=== PATIENT | male | born 1945 | race Caucasian/White ===

== ENCOUNTER 2021-04-24 19:21 | Inpatient (IN) | payer OTHER ==
[2021-04-24] MEDS ORDERED: Dextrose 5% in Water 1,000 ML IV PRN (20:21)
[2021-04-24] MEDS ORDERED: Morphine 2 MG/ML VIAL SLOW IVP PRN (20:21)
[2021-04-24] MEDS ORDERED: Dextrose 50% Abboject 50 ML SYRINGE SLOW IVP PRN (20:21)
[2021-04-24] MEDS ORDERED: Ondansetron PF 4 MG/2 ML Vial IVP PRN (20:21)
[2021-04-24] MEDS ORDERED: Cyclobenzaprine 10 MG TAB PO PRN (20:42)
[2021-04-24] MEDS ORDERED: traMADol HCl 50 MG TAB PO PRN (20:42)
[2021-04-24] MEDS ORDERED: Ibuprofen 200 MG TAB PO PRN (20:42)
[2021-04-24 21:50] LABS: Magnesium 1.9 mg/dL (1.6-2.6); Phosphorus 2.8 mg/dL (2.3-4.7)
[2021-04-24] MEDS ORDERED: Sodium Chloride 0.9% 1,000 ML IV SCH (22:30)
[2021-04-24 22:31] LABS: CKMB 20.8 ng/mL (0-6.6)
[2021-04-24] MEDS ORDERED: Gabapentin 100 MG CAP PO SCH (22:45)
[2021-04-24 22:53] VITALS: BMI 32.1
[2021-04-24] MEDS ORDERED: Potassium Chloride 40 MEQ in Sodium Chloride 0.9% 250 ML 250 ML IVPB SCH (23:00)
[2021-04-25] MEDS ORDERED: Famotidine/PF 20 mg/2ml Vial SLOW IVP SCH (00:30)
[2021-04-25] MEDS: Senokot S 8.6-50 MG TAB PO SCH ×3 (02:45→21:37)
[2021-04-25] MEDS: Acetaminophen 500 MG TAB PO SCH ×4 (02:49→18:00)
[2021-04-25 05:09] LABS: Hemoglobin 12.5 g/dL (14.0-18.0); Mean Corpuscular HGB CONC 36.1 g/dL (32.0-36.0); Mean Corpuscular Hemoglobin 35.9 pg (27.0-31.0); Mean Corpuscular Volume 99.5 fL (78.0-98.0); Mean Platelet Volume 7.2 fL (7.4-10.4); Platelet Count 152 thou/uL (130-400); RBC Distribution Width 11.7 % (11.5-14.5); Red Blood Cell (RBC) Count 3.49 mill/uL (4.70-6.10); White Blood Cell (WBC) Count 9.8 thou/uL (4.8-10.8)
[2021-04-25 05:14] LABS: Anion Gap 14 mmol/L (10-20); BUN (Urea Nitrogen) 26 mg/dL (8.4-25.7); Calc. Creatinine Clearance 118 mL/min (70-130); Calcium 8.8 mg/dL (7.8-10.44); Carbon Dioxide 23 mmol/L (23-31); Chloride 105 mmol/L (98-107); Glucose 137 mg/dL (83-110); Potassium 3.6 mmol/L (3.5-5.1); Sodium 138 mmol/L (136-145)
[2021-04-25 05:30] LABS: Phosphorus 3.6 mg/dL (2.3-4.7)
[2021-04-25 05:52] LABS: Band 4 % (5-11); Lymphocytes 11 % (21-51); MDiff Complete? YES; Monocytes 11 % (0-10); Neutrophil 74 % (42-75); Platelet Satellitism MODERATE; Vacuoles SLIGHT
[2021-04-25] MEDS: traMADol HCl 50 MG TAB PO SCH ×3 (05:53→18:00)
[2021-04-25 09:25] LABS: CKMB 14.5 ng/mL (0-6.6)
[2021-04-25] MEDS ORDERED: Iopamidol 370 76% 50 ML VIAL FS ONE (09:47)
[2021-04-25] MEDS: Famotidine/PF 20 mg/2ml Vial SLOW IVP SCH ×2 (11:23→21:36)
[2021-04-25] MEDS: Polyethylene Glycol 3350 17 GM Packet PO SCH (11:34)
[2021-04-25] MEDS: Gabapentin 100 MG CAP PO SCH ×3 (11:35→21:38)
[2021-04-25] MEDS ORDERED: Lidocaine 1% (PF) 30 ML VIAL ONE (14:53)
[2021-04-25] MEDS ORDERED: Gentamicin 80 MG/2 ML VIAL ONE (14:55)
[2021-04-25] MEDS ORDERED: CEFAZOLIN 1 GM VIAL ONE (14:55)
[2021-04-25] MEDS ORDERED: Midazolam HCl 2 mg/2 ml Vial ONE (15:07)
[2021-04-25] MEDS ORDERED: Fentanyl 100 MCG/2 ML VIAL ONE (15:14)
[2021-04-25] MEDS ORDERED: HYDROcodone/Acetaminophen 5/325 mg Tablet PO PRN (15:56)
[2021-04-26] MEDS: Acetaminophen 500 MG TAB PO SCH ×5 (00:02→23:56)
[2021-04-26] MEDS: traMADol HCl 50 MG TAB PO SCH ×5 (00:02→23:56)
[2021-04-26] MEDS: Senokot S 8.6-50 MG TAB PO SCH ×2 (08:50→21:59)
[2021-04-26] MEDS: Gabapentin 100 MG CAP PO SCH ×3 (08:50→22:00)
[2021-04-26] MEDS: Famotidine/PF 20 mg/2ml Vial SLOW IVP SCH ×2 (08:51→22:00)
[2021-04-26] MEDS: Polyethylene Glycol 3350 17 GM Packet PO SCH (08:51)
[2021-04-26] MEDS ORDERED: Aspirin 81 mg Enteric Coated Tablet PO SCH (09:15)
[2021-04-27] MEDS: traMADol HCl 50 MG TAB PO SCH ×2 (05:45→11:29)
[2021-04-27] MEDS: Acetaminophen 500 MG TAB PO SCH ×2 (05:45→11:29)
[2021-04-27] MEDS ORDERED: Aspirin 81 mg Enteric Coated Tablet PO SCH (09:00)
[2021-04-27] MEDS: Gabapentin 100 MG CAP PO SCH (09:01)
[2021-04-27] MEDS: Senokot S 8.6-50 MG TAB PO SCH (09:01)
[2021-04-27] MEDS: Polyethylene Glycol 3350 17 GM Packet PO SCH (09:01)
[2021-04-27 11:28] VITALS: TEMP 97.7
[2021-04-27 12:01] VITALS: BP 178/81
== END 2021-04-27 14:35 | disposition home or self-care (01) | DRG 243 ==
LOC: 2NO 19:21
PROVIDERS: ADMIT Surgery; ATTEND Surgery
PROC: 0JH606Z Insertion of Pacemaker, Dual Chamber into Chest Subcutaneous Tissue and Fascia, Open Approach (ICD-10-PCS; principal; 2021-04-25)
PROC: 02HK3JZ Insertion of Pacemaker Lead into Right Ventricle, Percutaneous Approach (ICD-10-PCS; 2021-04-25)
PROC: 02H63JZ Insertion of Pacemaker Lead into Right Atrium, Percutaneous Approach (ICD-10-PCS; 2021-04-25)
DX: I44.2 Atrioventricular block, complete (principal); S32.031A Stable burst fracture of third lumbar vertebra, initial encounter for closed fracture; S22.20XA Unspecified fracture of sternum, initial encounter for closed fracture; S22.41XA Multiple fractures of ribs, right side, initial encounter for closed fracture; I25.10 Atherosclerotic heart disease of native coronary artery without angina pectoris; I10 Essential (primary) hypertension; H91.90 Unspecified hearing loss, unspecified ear; M54.2 Cervicalgia; I07.1 Rheumatic tricuspid insufficiency; R79.89 Other specified abnormal findings of blood chemistry; Z95.5 Presence of coronary angioplasty implant and graft; Z79.82 Long term (current) use of aspirin; V48.5XXA Car driver injured in noncollision transport accident in traffic accident, initial encounter; Y92.488 Other paved roadways as the place of occurrence of the external cause
CPT/HCPCS: 33208; 33249; 36415; 71045; 80048; 82550; 82553; 83735; 84100; 84484; 85025; 93306; 94640; 99152; 99153; C1785; C1898; J0690; J1580; J2001; J2250; J3010; J3480; J7030; J7050; J7620; S0028

== ENCOUNTER 2021-05-08 16:21 | Outpatient (CLI) | payer OTHER | END 2021-05-08 16:22 | disposition home or self-care (01) | LOC: BICRAD 16:21 | PROVIDERS: ATTEND Surgery | DX: S22.49XA Multiple fractures of ribs, unspecified side, initial encounter for closed fracture (principal); J90 Pleural effusion, not elsewhere classified | CPT/HCPCS: 71046 ==

== ENCOUNTER 2021-06-14 12:42 | Outpatient (CLI) | payer BC | END 2021-06-14 12:43 | disposition home or self-care (01) | LOC: TBSIIMAG 12:42 | PROVIDERS: ATTEND Neurological Surgery | DX: M54.50 Low back pain, unspecified (principal); S22.008A Other fracture of unspecified thoracic vertebra, initial encounter for closed fracture | CPT/HCPCS: 72100 ==

== ENCOUNTER 2021-07-25 12:49 | Outpatient (CLI) | payer BC | END 2021-07-25 12:50 | disposition home or self-care (01) | LOC: TBSIIMAG 12:49 | PROVIDERS: ATTEND Neurological Surgery | DX: S22.008A Other fracture of unspecified thoracic vertebra, initial encounter for closed fracture (principal); M54.50 Low back pain, unspecified | CPT/HCPCS: 72100 ==

== ENCOUNTER 2021-08-22 08:15 | Outpatient (CLI) | payer BC | END 2021-08-22 08:16 | disposition home or self-care (01) | LOC: TBSIIMAG 08:15 | PROVIDERS: ATTEND Neurological Surgery | DX: M54.50 Low back pain, unspecified (principal) | CPT/HCPCS: 72100 ==